=== PATIENT | male | born 1930 | race Caucasian/White ===

== ENCOUNTER → 2016-06-26 | Day surgery (SDC) | payer MEDICARE ==
[~2016-06-26] MED LIST: AMARYL2 MG PO; AMLODIPINE BESYL5 MG PO; COUMADIN4 MG PO; DOXYCYCLINE HY100 M3 PO; FLOMAX0.4 M1 PO; IMDUR-ER60 M1 PO; LO-DOSE ASPIRIN81 M1 PO; METOPROLOL SUCC25 MG PO; MULTI VITAMIN1 EACH PO; NEURONTIN PO; PACERONE100 MG PO; PROTONIX PO; SYNTHROID0.2 MG PO; VITAMIN B-150 MG PO
--- NOTE | ~2016-06-26 | OR ---
Unit #: [id number] #: [id number] Patient: SREE FISHMAN [id number] [address] [place], [place] [address] [id number] O MR#: [id number] NAME: SREE FISHMAN ROOM: Date of Procedure: 06/26/2016 Admission Date: 06/26/2016 Surgeon: Papito Javier Jr., M.D. : 1930 Attending Physician: Papito Javier Jr., M.D. Primary Care Physician: Samantha Primary Care Physician PROCEDURE OPERATIVE NOTE INDICATION The patient is an 86-year-old white male who was brought in by his daughter complaining of an infected cyst of the left lateral back. This is near the posterior axillary line and this had been very enlarged but since taking antibiotics is now decreased in size and is probably still 6 cm in diameter. He was brought in at this time for excision of this under local anesthesia. Informed consent has been obtained from his daughter and him. 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 ANESTHESIA Xylocaine 1% with epinephrine locally. SURGEON Papito Javier Jr., M.D. PROCEDURE PERFORMED Excision of chronic inflamed cyst of the left upper back. PROCEDURE The patient was positioned in right lateral decubitus position. After being prepped and draped in a routine fashion, he was anesthetized locally with 1% Xylocaine with epinephrine in the area of the cyst which was marked in the holding room. An elliptical incision was made around the cyst with a #10 blade scalpel and extended down through the subcu tissue, down to the deeper subcu tissue. Cyst was completely removed from the surrounding tissue and sent to Pathology. Hemostasis was achieved with the Bovie cautery. Deeper tissue approximated with interrupted 3-0 Vicryl sutures. Skin was approximated with stainless-steel skin clips with skin stapling device. Sterile dressings were applied externally. ESTIMATED BLOOD LOSS Minimal. FLUIDS The patient received no fluids during the procedure. Unit #: [id number] #: [id number] Patient: SREE FISHMAN COUNTS Sponge and instrument counts correct x3. DRAINS No drains used. COMPLICATIONS None. CONDITION ON DISCHARGE The patient was taken to the discharge area with stable vital signs for discharge in satisfactory condition. Dictated by... Papito Javier Jr., M.D. ARACELIS/duoglas TD: 06/26/2016 16:22 JOB #: [id number] PROCEDURE OPERATIVE NOTE Page 1 of 1 X Papito Javier MD X PROCEDURE OPERATIVE NOTE
[2016-06-26 11:07] LABS: INR 1.2; PARTIAL THROMBOPLASTIN TIME 32.4 SECONDS (23.5-31.3); PROTHROMBIN TIME (PATIENT) 12.9 SECONDS (9.6-11.5)
== END | disposition home or self-care (01) ==
LOC: CSUR 10:04
PROVIDERS: Surgery
DX: L72.0 Epidermal cyst (principal); I10 Essential (primary) hypertension; E11.9 Type 2 diabetes mellitus without complications; I25.2 Old myocardial infarction; J44.9 Chronic obstructive pulmonary disease, unspecified; K21.9 Gastro-esophageal reflux disease without esophagitis; E03.9 Hypothyroidism, unspecified; N40.0 Benign prostatic hyperplasia without lower urinary tract symptoms; M19.90 Unspecified osteoarthritis, unspecified site; Z85.038 Personal history of other malignant neoplasm of large intestine; Z85.118 Personal history of other malignant neoplasm of bronchus and lung; Z87.891 Personal history of nicotine dependence; Z88.0 Allergy status to penicillin; Z88.1 Allergy status to other antibiotic agents; Z79.01 Long term (current) use of anticoagulants; Z79.84 Long term (current) use of oral hypoglycemic drugs; Z79.899 Other long term (current) drug therapy; Z95.0 Presence of cardiac pacemaker; Z96.641 Presence of right artificial hip joint; Z98.890 Other specified postprocedural states
CPT/HCPCS: 82947; 85610; 85730; 88304; J3370